=== PATIENT | male | born 1985 | race Caucasian/White ===

== ENCOUNTER → 2018-04-29 | Outpatient (REF) | LOC: M SMT 12:58 | DX: Z00.00 Encounter for general adult medical examination without abnormal findings (principal) ==

== ENCOUNTER → 2020-10-24 | Outpatient (CLI) | payer OTHER ==
--- NOTE | 2020-10-28 03:09 | ECWPNPC ---
PATIENT NAME: CATHERINE GARCIA : 1985 GENDER: MALE VISIT DATE: 10/24/2020 DISCHARGE DATE: 10/24/20 1441 VISIT LOCKED DATE TIME: PHYSICIAN: JULOI LEMUS RESOURCE: JULIO LEMUS REASON FOR APPOINTMENT 1. CHRONIC BACK PAIN HISTORY OF PRESENT ILLNESS GENERAL: 35-YEAR-OLD GENTLEMAN BEING REFERRED BY [facility] TO EVALUATE CHRONIC GENERALIZED BACK PAIN. STATES PAIN BEGAN AFTER BEING THROWN OFF OF STEPS IN 2017. DENIES RADICULAR SYMPTOMS. SUFFERS FROM PTSD AND GENERALIZED ANXIETY DISORDER. HAS BEEN IN AND OUT OF SENIOR CARE ON MULTIPLE OCCASIONS. ADMITS TO ILLICIT DRUG USE. IS ASKING FOR MEDICAL MARIJUANA. CHIEF AREA OF PAIN IS LOW BACK. PAIN IS AGGRAVATED BY LIFTING HEAVY THINGS. DIAGNOSTIC IMAGING/X-RAY OF THE LUMBAR SPINE IS REVIEWED AND WITHIN NORMAL LIMITS. THIS X-RAY WAS TAKEN AFTER INJURY IN 2017. PATIENT STATES HE HAS MRI IMAGING FROM [facility] WHICH WE WILL TRY TO OBTAIN. DENIES BOWEL OR BLADDER INCONTINENCE. DENIES SADDLE PARESTHESIAS.-. FALL RISK SCREENING: SCREENING : NO FALLS REPORTED IN THE LAST YEAR. PAIN SCREENING: PATIENT HAS A COMPLAINT OF ACUTE OR CHRONIC PAIN :YES LOCATION OF PAIN:LOW BACK INTENSITY OF PAIN (SCALE OF 1 TO 10):5 WHAT DOES YOUR PAIN FEEL LIKE:ACHING, THROBBING DURATION:CONTINOUS, CONSTANT, ALL DAY PAIN IS INCREASED BY:OTHERS LIFTING THINGS PAIN IS DECREASED BY:OTHERS HEAT NURSING NOTE: -. PAIN CENTER INTAKE QUESTIONS: DO YOU HAVE A HISTORY OF MRSA? :NO DO YOU TAKE A BLOOD THINNERS? :NO DO YOU HAVE ANY BLEEDING DISORDERS? :NO ANY NEW NUMBNESS OR WEAKNESS IN YOUR LEGS OR ARMS? :NO ANY PACEMAKER,DEFIBRILLATOR, OR DORSAL COLUMN STIMULATOR? :NO DO YOU HAVE ANY RASHES OR OPEN SORES? :NO ARE YOU ALLERGIC TO IV DYE? :NO ARE YOU DIABETIC? :NO ANY NEW PROBLEMS WITH YOUR MEDICATIONS? :NO HAVE YOU RECEIVED A VACCINE IN THE PAST 30 DAYS? :NO DO YOU PLAN TO RECEIVE A VACCINE IN THE NEXT 21 DAYS? :NO DO YOU NEED ANY PRESCRIPTION? :NO DO YOU TAKE ANY IMMUNOSUPPRESSIVE MEDICATIONS? :NO CURRENT MEDICATIONS TAKING GABAPENTIN 800 MG TABLET 1 TABLET ORALLY ONCE A DAY TAKING VITAMIN D 125 MCG (5000 UT) CAPSULE DIRECTED ORALLY TAKING KLONOPIN 1 MG TABLET 1 TABLET ORALLY ONCE A DAY TAKING TOPIRAMATE 100 MG TABLET 1 TABLET ORALLY ONCE A DAY TAKING EFFEXOR XR 150 MG CAPSULE EXTENDED RELEASE 24 HOUR 1 CAPSULE WITH FOOD ORALLY ONCE A DAY TAKING CYCLOBENZAPRINE HCL 10 MG TABLET 1 TABLET AT BEDTIME NEEDED ORALLY ONCE A DAY TAKING HYDROXYZINE HCL 25 MG/ML SOLUTION 2 ML NEEDED INTRAMUSCULAR EVERY 6 HRS TAKING RIZATRIPTAN BENZOATE 10 MG TABLET 1 TABLET ORALLY ONCE A DAY TAKING VITAMIN D2 10 MCG (400 UNIT) TABLET 2 TABLETS ORALLY ONCE A DAY TAKING VENLAFAXINE HCL ER 75 MG TABLET EXTENDED RELEASE 24 HOUR 1 TABLET WITH FOOD ORALLY ONCE A DAY TAKING CLONAZEPAM 1 MG TABLET 1 TABLET ORALLY ONCE A DAY TAKING VENLAFAXINE HCL ER 150 MG CAPSULE EXTENDED RELEASE 24 HOUR 1 CAPSULE WITH FOOD ORALLY ONCE A DAY TAKING CYCLOBENZAPRINE HCL 10 MG TABLET 1 TABLET AT BEDTIME NEEDED ORALLY ONCE A DAY NOT-TAKING SYNTHROID 88 MCG TABLET 1 TABLET IN THE MORNING ON AN EMPTY STOMACH ORALLY ONCE A DAY NOT-TAKING EFFEXOR XR 150 MG CAPSULE EXTENDED RELEASE 24 HOUR 1 CAPSULE WITH FOOD ORALLY ONCE A DAY NOT-TAKING TOPIRAMATE 100 MG TABLET 1 TABLET ORALLY ONCE A DAY NOT-TAKING KLONOPIN 1 MG TABLET 1 TABLET ORALLY ONCE A DAY NOT-TAKING VITAMIN D-3 5000 UNIT/ML LIQUID 1 ML UNDER THE TONGUE SUBLINGUAL ONCE A DAY NOT-TAKING GABAPENTIN 800 MG TABLET 1 TABLET ORALLY ONCE A DAY MEDICATION LIST REVIEWED AND RECONCILED WITH THE PATIENT PAST MEDICAL HISTORY PTSD DYSTHYMIC DISORDER HYPOTHYROIDISM DRUG ABUSE WITH INCARCERATION AND PAROLE ALLERGIES N.K.D.A. SURGICAL HISTORY WISDOM TEETH EXTRACTION FAMILY HISTORY FATHER: ALIVE MOTHER: ALIVE SON(S): 1 SON(S) . SOCIAL HISTORY GENERAL: TOBACCO USE ARE YOU A:CURRENT SMOKER ARE YOU INTERESTED IN QUITTING?NOT READY TO QUIT COUNSELED THE PATIENT ON SMOKING EFFECTS, EDUCATION [id number]/29/2021 HOW MANY CIGARETTES A DAY DO YOU SMOKE?- LATEX QUESTIONNAIRE LATEX ALLERGY : HAVE YOU EVER DEVELOPED ANY TYPE OF REACTION AFTER HANDLING LATEX PRODUCTS SUCH RUBBER GLOVES, CONDOMS, DIAPHRAGMS, BALLOONS, SOCKS, OR UNDERWEAR?NO LATEX ALLERGY : HAVE YOU EVER DEVELOPED ANY TYPE OF REACTION DURING OR AFTER DENTAL APPOINTMENT, VAGINAL/RECTAL EXAMINATION, SURGICAL PROCEDURE, OR ANY OTHER EXPOSURE?NO LATEX RISK : HAVE YOU EVER HAD ANY DIFFICULTY BREATHING OR HIVES AFTER EATING OR HANDLING ANY FRUITS, OR VEGETABLES; SUCH KIWI, BANANAS, STONE FRUITS, OR CHESTNUTSNO LATEX RISK : DO YOU HAVE A PREVIOUS PERSONAL HISTORY OF MORE THAN NINE SURGERIES, SPINA BIFIDA, OR REPEATED CATHERIZATIONS? NO LATEX RISK : ARE YOU FREQUENTLY EXPOSED TO LATEX PRODUCTS IN YOUR OCCUPATION?NO DATE ASKED : 10/24/2020 ALCOHOL USE: YES, ONCE IN A WHILE. RECREATIONAL DRUG USE DRUG USE?YES MARIJUANA LEARNING BARRIERS / SPECIAL NEEDS BARRIERS TO LEARNING?NO HEARING IMPAIRED?NO VISION IMPAIRED?YES COGNITIVELY IMPAIRED?NO READINESS TO LEARN?YES LEARNING PREFERENCES?NO LEARNING CAPABILITIES PRESENT?YES EMOTIONAL BARRIERS?NO SPECIAL DEVICES?NO SWEATER OPERATOR NEEDED?NO HOSPITALIZATION/MAJOR DIAGNOSTIC PROCEDURE REHAB INPATIENT 4X REVIEW OF SYSTEMS CONSTITUTIONAL: ANY RECENT FEVER NO . CHILLS NO . WEIGHT CHANGE OF UNKNOWN REASONS NO . GASTROENTEROLOGY: NEW UNEXPLAINABLE CHANGES IN BOWEL CONTROL NO . CONSTIPATION NO . GENITOURINARY: ANY NEW CHANGE IN BLADDER CONTROL? NO . NEUROLOGY: NEW ONSET DIZZINESS OR NEUROLOGICAL CHANGES NOT MENTIONED NO . NEW NUMBNESS OR PAIN PATTERNS NOT MENTIONED AND PERTINENT TO TODAY'S VISIT NO . CARDIOLOGY: NEW CHEST PRESSURE NO . PATIENT DENIES NO . RESPIRATORY: UNEXPLAINABLE COUGH NO . NEW SHORTNESS OF BREATH NO . VITAL SIGNS WT 138 LBS, HT 5'5, BMI 26.95 INDEX, BP 125/86 MM HG, HR 89 /MIN, RR 18 /MIN, TEMP 97.8 F, OXYGEN SAT % 99%, SAFE IN ENV? (Y/N) YEST.CHRISTIN BUCKLEY. EXAMINATION GENERAL EXAMINATION: GENERALNO ACUTE DISTRESS. PSYCHPOOR EYE CONTACT FLAT AFFECT . NECK:NO LYMPHADENOPATHY, SUPPLE. LUNGS:CLEAR TO AUSCULTATION BILATERALLY, NO WHEEZES, RHONCHI, RALES. HEART:NO MURMURS, REGULAR RATE AND RHYTHM. MUSCULOSKELETAL: MUSCLE STRENGTH TESTING 5/5 BILATERAL UPPER/LOWER EXTREMITIES. LUMBAR: PALPATION: NEGATIVE FOR PAIN OVER L/S SPINE. NEGATIVE FOR PAIN OVER L/S PARSPINALS. CERVICAL: NEGATIVE FOR PAIN WITH PALPATION OF CERVICAL SPINE. NEGATIVE FOR PAIN WITH PALPATION OF CERVICAL PARASPINALS. NEGATIVE FOR PAIN WITH PALPATION OF TRAPEZIUS BILAT. ASSESSMENTS MYALGIA, OTHER SITE - M79.18 (PRIMARY) TREATMENT MYALGIA, OTHER SITE NOTES: PATIENT WAS ADVISED TO START A WALKING PROGRAM TO STRENGTHEN LUMBAR PARASPINAL MUSCLES AND IMPROVE MOBILITY. THEY WERE ADVISED THAT THIS WILL IMPROVE WEIGHT LOSS AND ALSO DEPRESSION/FIBROMYALGIA SYMPTOMS. ADVISED TO WALK 10 MINUTES EVERY OTHER DAY ON A FLAT SURFACE. EMPHASIZED THE IMPORTANCE OF DOING THIS CONSISTANTLY AND NOT SPORATICALLY TO AVOID INJURY. SIGN RECORDS RELEASE FOR [facility] NEUROLOGY-MRI NECK AND LOW BACK. REFERRAL TO:PHYSICAL THERAPIST REASON:2XWK X 6 WKS,MASSAGE,MYOFASCIAL RELEASE,STRENGTHENING,STRETCHING REFERRAL TO:OF [facility] REASON:EVALUATE FOR MEDICAL MARIJUANA OTHERS REFERRAL TO:[facility] REASON:EVALUATE FOR MEDICAL MARIJUANA PROCEDURE CODES [id number] ESTABILISHED PATIENT [facility] FACILITY CHARGE DISPOSITION & COMMUNICATION FOLLOW UP 4 MONTHS (REASON: PT FOLLOW-UP/MEDICAL MARIJUANA FOLLOW-UP) ELECTRONICALLY SIGNED BY THAO ABDUL ON 10/27/2020 AT 09:09 AM EDT DISCLAIMER : THIS IS A VISIT SUMMARY EXTRACTED FROM THE [employer] CHART. IT IS NOT A COPY OF THE [employer] PROGRESS NOTE. STACY
== END ==
LOC: M PAIN 13:00
PROVIDERS: ATTEND Nurse Practitioner Family
DX: M79.18 Myalgia, other site (principal); F17.210 Nicotine dependence, cigarettes, uncomplicated; Z86.59 Personal history of other mental and behavioral disorders; Z79.899 Other long term (current) drug therapy

== ENCOUNTER → 2020-11-04 | Outpatient (CLI) | payer MEDICAID | LOC: M OUTALCOH 10:42 | PROVIDERS: ATTEND Psychiatry & Neurology Psychiatry | DX: F12.20 Cannabis dependence, uncomplicated (principal) ==

== ENCOUNTER 2020-11-11 15:00 | Outpatient (RCR) | payer MEDICAID | END 2020-11-25 | LOC: M OUTALCOH 15:00 | PROVIDERS: ATTEND Psychiatry & Neurology Psychiatry | DX: F12.20 Cannabis dependence, uncomplicated (principal); F17.200 Nicotine dependence, unspecified, uncomplicated; F14.10 Cocaine abuse, uncomplicated ==

== ENCOUNTER → 2024-06-22 | Outpatient (CLI) | payer OTHER ==
[2024-06-22 15:23] LABS: HEMATOCRIT 47.9 % (42.0-52.0); HEMOGLOBIN 16.7 g/dl (13.5-17.5); MEAN CORPUSCULAR HGB CONC 34.9 g/dl (32.0-36.5); MEAN CORPUSCULAR VOLUME 94.7 fl (80.0-96.0); PLATELET COUNT, AUTOMATED 187 10^3/uL (150-450); RED BLOOD COUNT 5.06 10^6/uL (4.30-6.10); WHITE BLOOD COUNT 9.9 10^3/uL (4.0-10.0)
[2024-06-22 15:36] LABS: HEMOGLOBIN A1c 4.8 % (4.0-6.0)
[2024-06-22 15:58] LABS: FREE T4 1.13 NG/DL (0.89-1.76)
[2024-06-22 15:59] LABS: THYROXINE (T4) 8.2 UG/DL (4.5-10.9); VITAMIN B12 LEVEL 379 PG/ML (211-911)
[2024-06-22 16:00] LABS: TOTAL 25(OH) VITAMIN D 76.8 NG/ML (20.0-100.0)
[2024-06-22 16:02] LABS: ALBUMIN 3.8 G/DL (3.2-5.2); ALKALINE PHOSPHATASE 70 U/L (40-129); ALT/SGPT 15 U/L (7.0-40); AST/SGOT 12 U/L (<34); BILIRUBIN,TOTAL 0.4 MG/DL (0.3-1.2); BLOOD UREA NITROGEN 11 MG/DL (9-23); CARBON DIOXIDE LEVEL 27 MMOL/L (20-31); CHLORIDE LEVEL 112 MMOL/L (98-107); CHOLESTEROL LEVEL 279 MG/DL (<200); CREATININE FOR GFR 0.89 MG/DL (0.70-1.30); GLOMERULAR FILTRATION RATE > 60.0 (>60); GLUCOSE, FASTING 90 MG/DL (60-100); HDL CHOLESTEROL 54.6 MG/DL (>40); MAGNESIUM LEVEL 2.1 MG/DL (1.8-2.4); NON-HDL-C 224.4 MG/DL; POTASSIUM SERUM 3.9 MMOL/L (3.5-5.1); SODIUM LEVEL 143 MMOL/L (136-145); TOTAL PROTEIN 6.6 G/DL (5.7-8.2); TRIGLYCERIDES LEVEL 232 MG/DL (<150)
[2024-06-22 16:04] LABS: TESTOSTERONE 769 NG/DL (241-827); THYROID STIMULATING HORMONE 0.983 uIU/ML (0.55-4.78)
== END ==
LOC: M LAB 14:21
PROVIDERS: ATTEND Nurse Practitioner Psychiatric/Mental Health
DX: F33.9 Major depressive disorder, recurrent, unspecified (principal); E07.9 Disorder of thyroid, unspecified

== ENCOUNTER → 2024-06-30 | Outpatient (CLI) | payer MEDICAID, OTHER ==
[2024-06-30 15:42] LABS: ALBUMIN 4.3 G/DL (3.2-5.2); ALKALINE PHOSPHATASE 76 U/L (40-129); ALT/SGPT 19 U/L (7.0-40); AST/SGOT 9 U/L (<34); BILIRUBIN,DIRECT < 0.1 MG/DL (<0.4); BILIRUBIN,TOTAL 0.3 MG/DL (0.3-1.2); TOTAL PROTEIN 7.2 G/DL (5.7-8.2)
[2024-07-02 18:32] LABS: HCV RNA QUANTITATION <15 NOT DETECTED IU/mL (NOT DETECTED); HCV RNA log10 <1.18 NOT DETECTED Log IU/mL (NOT DETECTED)
== END ==
LOC: M PLALAB 14:01
PROVIDERS: ATTEND Internal Medicine Infectious Disease
DX: B18.2 Chronic viral hepatitis C (principal)

== ENCOUNTER → 2024-10-13 | Outpatient (REF) | payer OTHER ==
[2024-10-13 13:29] LABS: HEMATOCRIT 50.1 % (42.0-52.0); HEMOGLOBIN 17.2 g/dl (13.5-17.5); MEAN CORPUSCULAR HEMOGLOBIN 32.4 pg (27.0-33.0); MEAN CORPUSCULAR HGB CONC 34.3 g/dl (32.0-36.5); MEAN CORPUSCULAR VOLUME 94.4 fl (80.0-96.0); PLATELET COUNT, AUTOMATED 203 10^3/uL (150-450); RED BLOOD COUNT 5.31 10^6/uL (4.30-6.10); WHITE BLOOD COUNT 9.3 10^3/uL (4.0-10.0)
[2024-10-13 13:30] LABS: ALBUMIN 3.9 G/DL (3.2-5.2); ALKALINE PHOSPHATASE 74 U/L (40-129); ALT/SGPT 21 U/L (7.0-40); AST/SGOT 14 U/L (<34); BILIRUBIN,TOTAL 0.2 MG/DL (0.3-1.2); BLOOD UREA NITROGEN 16 MG/DL (9-23); CALCIUM LEVEL 9.3 MG/DL (8.5-10.1); CARBON DIOXIDE LEVEL 25 MMOL/L (20-31); CHLORIDE LEVEL 109 MMOL/L (98-107); CHOLESTEROL LEVEL 309 MG/DL (<200); CHOLESTEROL RISK RATIO 6.88 (<5); CREATININE FOR GFR 1.01 MG/DL (0.70-1.30); GLOMERULAR FILTRATION RATE > 60.0 (>60); GLUCOSE, FASTING 156 MG/DL (60-100); HDL CHOLESTEROL 44.9 MG/DL (>40); LDL CHOLESTEROL 208.7 MG/DL (<100); NON-HDL-C 264.1 MG/DL; POTASSIUM SERUM 4.1 MMOL/L (3.5-5.1); SODIUM LEVEL 143 MMOL/L (136-145); TOTAL PROTEIN 6.8 G/DL (5.7-8.2); TRIGLYCERIDES LEVEL 277 MG/DL (<150)
[2024-10-13 13:34] LABS: FREE T4 1.17 NG/DL (0.89-1.76); THYROID STIMULATING HORMONE 2.868 uIU/ML (0.55-4.78)
== END ==
LOC: M LAB REF 12:17
PROVIDERS: ATTEND Student in an Organized Health Care Education/Training Program
DX: Z00.01 Encounter for general adult medical examination with abnormal findings (principal)

== ENCOUNTER → 2025-03-15 | Outpatient (CLI) | payer OTHER ==
[2025-03-15 12:32] LABS: BASO # 0.1 10^3/uL (0.0-0.2); BASO % 0.7 % (0.0-1.0); EOS # 0.2 10^3/uL (0.0-0.5); EOS % 2.0 % (0.0-3.0); LYMPH # 4.4 10^3/uL (1.5-5.0); LYMPH % 46.9 % (24.0-44.0); MONO # 0.7 10^3/uL (0.0-0.8); MONO % 7.8 % (2.0-8.0); NEUTROPHILS # 4.0 10^3/uL (1.5-8.5); NEUTROPHILS % 42.4 % (36.0-66.0); PLATELET COUNT, AUTOMATED 220 10^3/uL (150-450)
[2025-03-15 12:39] LABS: ERYTHROCYTE SEDIMENTATION RATE 2 mm/hr (0-15)
[2025-03-15 13:03] LABS: ALT/SGPT 45 U/L (7.0-40); AST/SGOT 43 U/L (<34); C REACTIVE PROTEIN QUANTITATIV < 0.50 MG/DL (<1.0); CALCIUM LEVEL 8.7 MG/DL (8.5-10.1); CARBON DIOXIDE LEVEL 27 MMOL/L (20-31); CHLORIDE LEVEL 110 MMOL/L (98-107); CREATININE FOR GFR 0.98 MG/DL (0.70-1.30); GLOMERULAR FILTRATION RATE > 90.0 (>60); POTASSIUM SERUM 4.1 MMOL/L (3.5-5.1); SODIUM LEVEL 145 MMOL/L (136-145)
== END ==
LOC: M LAB 11:58
PROVIDERS: ATTEND Internal Medicine Rheumatology
DX: R76.8 Other specified abnormal immunological findings in serum (principal); M35.3 Polymyalgia rheumatica; B18.2 Chronic viral hepatitis C; Z72.0 Tobacco use

== ENCOUNTER → 2025-05-13 | Outpatient (CLI) | payer OTHER | LOC: M RAD 15:45 | PROVIDERS: ATTEND Student in an Organized Health Care Education/Training Program | DX: M54.50 Low back pain, unspecified (principal) ==